=== PATIENT | male | born 1935 | race Caucasian/White ===

== ENCOUNTER 2018-09-11 11:27 | Emergency (ER) | payer MEDICARE, BC ==
--- NOTE | 2018-09-11 11:49 | Emergency Department Record ---
History of Present Illness - General Chief Complaint: Fall Injury Stated Complaint: FELL RT SHOULD PAIN Time Seen by Provider: 09/11/18 11:44 Source: Patient, Family (daughter ) Mode of Arrival: Ambulatory Limitations: No limitations - History of Present Illness Initial Comments: Pt with daughter from home after a "slip on icy deck steps". Pt fell catching self with right extended hand. Pain into right shoulder. No head trauma, no neck pain. Pt is on Plavix. Occured 4 hours prior to evaluation. Since the fall he was able to get up and into the house. He has showered, had breakfast, and then was encouraged to come to the ED for evaulation by his daughter. Only complaint is of right shoulder pain with motion. No buttock, hip, knee pains. MD Complaint: Fall Onset/Timin Fall From: Down stairs (#) (2) When Fall Occurred: 4-6 hours [employer] Fall Witnessed: No Place Fall Occurred: Home Loss of Consciousness: None Prolonged Down Time?: No Symptoms Prior to Fall: None Location - Extremities: Right: Shoulder Severity: Moderate Severity scale (1-10): 5 Quality: Aching Context: Tripped/slipped Associated Symptoms: Denies - Mishel Coma Scale Eye Response: (4) Open spontaneously Motor Response: (6) Obeys commands Verbal Response: (5) Oriented Mishel Total: 15 - Related Data Home Medications Medication Instructions Recorded Confirmed Last Taken Clopidogrel Bisulfate [Clopidogrel] 75 mg PO DAILY 09/11/18 09/11/18 09/10/18 Doxazosin Mesylate 8 mg PO DAILY 09/11/18 09/11/18 09/10/18 Simvastatin 20 mg PO DAILY 09/11/18 09/11/18 09/10/18 Valsartan 180 mg PO DAILY 09/11/18 09/11/18 09/10/18 Allergies Allergy/AdvReac Type Severity Reaction Status Date / Time No Known Drug Allergies Allergy Verified 09/11/18 12:06 Review of Systems Constitutional: Denies: Chills, Fever, Weakness Eyes: Denies: Eye discharge, Eye pain ENT: Denies: Congestion, Ear pain Respiratory: Denies: Cough Cardiovascular: Denies: Arrhythmia, Chest pain, Palpitations, Syncope Endocrine: Denies: Fatigue, Polydipsia Gastrointestinal: Denies: Abdominal pain, Nausea, Vomiting Musculoskeletal: Reports: As per HPI. Denies: Back pain, Neck pain Skin: Denies: Bruising, Rash Neurological: Denies: Abnormal gait, Confusion, Headache, Seizure, Tremors Psychiatric: Denies: Anxiety Hematological/Lymphatic: Denies: Anemia Physical Exam - General General Appearance: Alert, Oriented x3, Cooperative, Mild distress - Head Head exam: Atraumatic, Normal inspection Head exam detail: negative: Abrasion, Contusion, General tenderness, Hematoma - Eye Eye exam: Normal appearance, PERRL - ENT ENT exam: Normal exam, Mucous membranes moist, Normal external ear exam, Normal orophraynx, TM's normal bilaterally - Neck Neck exam: Normal inspection, Full ROM. negative: Tenderness - Respiratory Respiratory exam: Normal lung sounds bilaterally. negative: Respiratory distress, Wheezes - Cardiovascular Cardiovascular Exam: Regular rate, Normal rhythm, Normal heart sounds - Extremities Extremities exam: Other (Pelvis stable, no hip pain with figure 4 BL, no knee or annkle pain. ) Image of Full Body: 1 - tender to right shoulder anterior joint line. Increaded with ABDuction. No bruising or crepitence to the upper arm. No elbow or wrist pain. - Back Back exam: Reports: Normal inspection, Full ROM. Denies: Muscle spasm, Paraspinal tenderness, Vertebral tenderness - Neurological Neurological exam: Alert, Normal gait, Oriented X3 - Psychiatric Psychiatric exam: Normal affect, Normal mood - Skin Skin exam: Normal color. negative: Rash Course - Reevaluation(s) Reevaluation #1: 09/11/18 11:52 By criteria pt is over 65 and on Plavix so is a Trauma activation. Pt history and exam his care is guided. Xray of the shoulder and arm ordered. Reevaluation #2: 09/11/18 12:34 Xrays neg for fx or dislocation. Sling applied with instructions and discussion for ROM excercises. Disposition Disposition: Discharge Clinical Impression: Right shoulder strain, Fall Disposition: Home, Self-Care Condition: (1) Good Instructions: Fall Prevention for Older Adults (ED), Shoulder Sprain (ED) Additional Instructions: Wear you sling when up and about. Remove when at rest at home. Range of Motion excercises during commercials! Ice. Tylenol for pain. No non steroidals. See your doctor in 3-5 days. Return tothe ED if any concerns. Forms: Patient Portal Access Quality - Quality Measures Quality Measures: N/A - Blood Pressure Screening Does Patient Have Any of the Following: No Blood Pressure Classification: Pre-Hypertensive BP Reading Systolic Measurement: 152 Diastolic Measurement: 86 Screening for High Blood Pressure: Patient Exclusion, Hx of HTN [G9744]
--- NOTE | 2018-09-13 08:02 | RADIOLOGY REPORT ---
EXAM: RIGHT HUMERUS, TWO VIEWS HISTORY: FALL. SHOULDER PAIN. LIMITED RANGE OF MOTION. TECHNIQUE: AP and lateral views of the right humerus were obtained on three images. Comparison: None. FINDINGS: The bones appear osteopenic. There is elevation of the humeral head compatible with underlying rotator cuff tearing. No clearly acute osseous abnormality. The soft tissues are unremarkable. IMPRESSION: NO ACUTE OSSEOUS ABNORMALITY WITHIN THE RIGHT HUMERUS. JOB NUMBER: [id number] MTDD
--- NOTE | 2018-09-13 08:04 | RADIOLOGY REPORT ---
EXAM: RIGHT SHOULDER, THREE VIEWS HISTORY: FALL AND PAIN. TECHNIQUE: Three views of the right shoulder were obtained. FINDINGS: Mild acromioclavicular degenerative change. There appears to be calcific tendonitis. No clearly acute osseous abnormality. The bones are osteopenic. The soft tissues are unremarkable. IMPRESSION: 1. NO ACUTE OSSEOUS ABNORMALITY RIGHT SHOULDER. 2. OSTEOPENIA. 3. CALCIFIC TENDONITIS. JOB NUMBER: [id number] MTDD
== END 2018-09-11 12:46 | disposition home or self-care (01) ==
LOC: ER 11:27
DX: S43.401A Unspecified sprain of right shoulder joint, initial encounter (principal); I10 Essential (primary) hypertension; Z87.891 Personal history of nicotine dependence; Z79.01 Long term (current) use of anticoagulants; W00.1XXA Fall from stairs and steps due to ice and snow, initial encounter; Y92.008 Other place in unspecified non-institutional (private) residence as the place of occurrence of the external cause
CPT/HCPCS: 99283; 99284